=== PATIENT | male | born 2005 | race Caucasian/White ===

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

== ENCOUNTER 2024-12-12 20:44 | Emergency (ER) | payer OTHER ==
[2024-12-12 21:00] VITALS: TEMP 98.8; O2SAT 100
--- NOTE | 2024-12-12 21:14 | ERPHSYRPT ---
- History of Present Illness Patient Subjective Stated Complaint: PT. STATES, "I WAS JUST SITTING AT HOME AND ALL OF THE SUDDEN I WAS STARING OFF INTO SPACE AND MY HANDS STARTED CRAMPING AND HAVING DIFFICULTY BREATHING. I DID SMOKE MARIJAUNA EARLIER TODAY AND SMOKED SOME DELTA 8 THIS EVENING BUT I'VE DONE THIS BEFORE WITH NO PROBLEMS" Triage Nursing Assessment: PT. A&OX3, SKIN P/W/D, RESP EVEN UNLABORED, MUCOUS MEMBRANES DRY, SHIVERING, TALKING A LOT ABOUT MULTIPLE TOPICS, VERY ANXIETY. Physician History: SmokerPatient had what appears to be a absence seizure. He was in marijuana and then began to counter freeze. His family said that he was just spacing out. He does not remember it. They said that he did have some fine tremors in his hands. After it ended he was a little bit postictal for just a few minutes but he is back to normal now. He says he feels much better. He is never had a seizure before.There is no other factors in his history that would have contributed to it. Allergies/Adverse Reactions: No Known Drug Allergies Allergy (Verified 10/20/22 11:04) Home Medications: No Reportable Medications [No Reported Medications] 12/12/24 [History] Hx Tetanus, Diphtheria Vaccination/Date Given: Yes Hx Influenza Vaccination/Date Given: No Hx Pneumococcal Vaccination/Date Given: No Immunizations Up to Date: No Travel Risk - International Travel Have you traveled outside of the country in past 3 weeks: No - Emerging Infectious Disease Are you exhibiting symptoms associated with any current EIDs: No - Review of Systems Constitutional: No Symptoms Eyes: No Symptoms Ears, Nose, & Throat: No Symptoms Respiratory: No Symptoms All Other Systems: Reviewed and Negative - Past Medical History Pertinent Past Medical History: Yes Neurological History: No Pertinent History ENT History: No Pertinent History Cardiac History: No Pertinent History Respiratory History: No Pertinent History Endocrine Medical History: No Pertinent History Musculoskeletal History: No Pertinent History GI Medical History: Other History: No Pertinent History Psycho-Social History: Other Male Reproductive Disorders: No Pertinent History Other Medical History: ASBERGER'S DISEASE, ADD - Past Surgical History Past Surgical History: Yes Neuro Surgical History: No Pertinent History Cardiac: No Pertinent History Respiratory: No Pertinent History Gastrointestinal: No Pertinent History Genitourinary: No Pertinent History Musculoskeletal: No Pertinent History Male Surgical History: No Pertinent History Other Surgical History: LEFT ELBOW SURGERY Significant Family History: no pertinent family hx - Social History Smoking Status: Current every day smoker Exposure to second hand smoke: Yes Drug Use: marijuana Patient Lives Alone: No - Social Determinants of Health Will the patient participate in the screening: Yes Do you worry about a steady place to live?: No Do you have any problems with any of the following?: No known problems In the past 12 months,have you had to go without utilities?: No Transportation Issues: No Has anyone in your support network made you feel unsafe?: No Have you or anyone in your house had to go without enough: No - Nursing Vital Signs Nursing Vital Signs: Initial Vital Signs Temperature 98.8 F 12/12/24 20:49 Pulse Rate 90 12/12/24 20:49 Respiratory Rate 21 12/12/24 20:49 Blood Pressure 138/85 12/12/24 20:49 O2 Sat by Pulse Oximetry 100 12/12/24 20:49 Pain Scale Pain Intensity 0 - Horace Coma Scale Best Eye Response ([place]): (4) open spontaneously Best Verbal Response ([place]): (5) oriented Best Motor Response ([place]): (6) obeys commands [place] Total: 15 - Physical Exam General Appearance: no apparent distress Ears, Nose, Throat Exam: normal ENT inspection, TMs normal, pharynx normal Neck Exam: normal inspection, non-tender Respiratory: normal breath sounds Extremity Exam: normal inspection, normal range of motion Mental Status: alert, oriented x 3, 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 Ongoing to discharge him home. He had an absence seizure. 12/12/24 21:13 Medical Desision Making - Diagnostic Testing Diagnostic test were ordered, analyzed, and reviewed by me: No - Departure Departure Disposition: Home Clinical Impression: Absence seizure Condition: Stable Critical Care Time: No Referrals: JESS STEVE MD [Primary Care Provider] - Follow up/PCP as directed
[2024-12-12 21:25] VITALS: BP 124/79; PULSE 72; RESP 13
== END 2024-12-12 21:37 | disposition home or self-care (01) ==
LOC: ED 20:44
DX: G40.A09 Absence epileptic syndrome, not intractable, without status epilepticus (principal); Z72.0 Tobacco use
CPT/HCPCS: 99281